=== PATIENT | female | born 1985 ===

== ENCOUNTER 2018-04-08 17:45 | Emergency (ER) | payer OTHER ==
[2018-04-08] MEDS ORDERED: Sodium Chloride 0.9% 1,000 ML IV ONE (18:30)
--- NOTE | 2018-04-08 18:37 | C.PDOC ---
History Of Present Illness <ReneeNicolette Elizabeth - Last Filed: 04/08/18 18:51> <Yary Tello - Last Filed: 04/08/18 20:36> 33-year-old female, approximately 18 weeks , sent over from clinic for ultrasound. Patient states she has not felt any baby movement in 2 days, prompting concern. She denies any associated abdominal pain, vaginal bleeding, or other symptoms. LMP was in November. (Nicolette Duran) History Per: Patient History/Exam Limitations: no limitations Onset/Duration Of Symptoms: Days Current Symptoms Are (Timing): Still Present Radiation Of Pain To:: None Abnormal Vaginal Bleeding: No : 4 Para: 3 <Renee,Nicolette Elizabeth - Last Filed: 04/08/18 18:51> <Yary Tello - Last Filed: 04/08/18 20:36> Time Seen by Provider: 04/08/18 18:20 Chief Complaint (Nursing): Female Genitourinary Past Medical History Reviewed: Historical Data, Nursing Documentation, Vital Signs - Medical History PMH: No Chronic Diseases Surgical History: Family History: States: No Known Family Hx - Social History Hx Tobacco Use: No Hx Alcohol Use: No Hx Substance Use: No <Renee,Nicolette Elizabeth - Last Filed: 04/08/18 18:51> Vital Signs: Last Vital Signs Temp 99.5 F 04/08/18 17:55 Pulse 92 H 04/08/18 17:55 Resp 18 04/08/18 17:55 BP 137/84 04/08/18 17:55 Pulse Ox 98 04/08/18 18:52 Review Of Systems Except As Marked, All Systems Reviewed And Found Negative. Constitutional: Negative for: Fever, Chills Cardiovascular: Negative for: Chest Pain Respiratory: Negative for: Shortness of Breath Gastrointestinal: Positive for: Other (lack of movement). Negative for: Nausea, Vomiting, Abdominal Pain Genitourinary: Negative for: Vaginal Bleeding Neurological: Negative for: Weakness, Numbness <ReneeNicolette A - Last Filed: 04/08/18 18:51> Physical Exam - Physical Exam Appears: Non-toxic, No Acute Distress Skin: Normal Color, Warm, Dry Head: Atraumatic, Normacephalic Eye(s): bilateral: Normal Inspection, PERRL, EOMI Neck: Normal ROM Chest: Symmetrical Cardiovascular: Rhythm Regular, No Murmur Respiratory: Normal Breath Sounds, No Rales, No Rhonchi, No Wheezing Gastrointestinal/Abdominal: Soft, No Tenderness, No Guarding Back: Normal Inspection Extremity: Bilateral: Atraumatic, Normal Color And Temperature, Normal ROM Neurological/Psych: Oriented x3, Normal Speech Gait: Steady <Nicolette Duran - Last Filed: 04/08/18 18:51> ED Course And Treatment - Laboratory Results Result Diagrams: 04/08/18 18:38 O2 Sat by Pulse Oximetry: 98 - CT Scan/US Pelvic US Other Rad Studies (CT/US): U/S Performed By Md CT/US Interpretation: Bedside US performed by oh, fetus visualized but no movement. Progress Note: Will order official ultrasound and labs to evaluate. Blood work and urine sent. Reassessment Condition: Unchanged <Nicolette Duran - Last Filed: 04/08/18 18:51> - Laboratory Results Result Diagrams: 04/08/18 18:38 04/08/18 18:38 <Yary Tello - Last Filed: 04/08/18 20:36> Disposition - Disposition Disposition Time: 19:00 - POA Present On Arrival: None <Nicolette Duran - Last Filed: 04/08/18 18:51> - Disposition Disposition Time: 20:35 <Yary Tello - Last Filed: 04/08/18 20:36> - Disposition Disposition: HOME/ ROUTINE Condition: STABLE Instructions: Dealing With Miscarriage Forms: [employer] ([place]gentine) Print Language: [place] - Clinical Impression Clinical Impression: demise before 20 weeks with retention of fetus - 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 - Scribe Statement The provider has reviewed the documentation as recorded by the Scribe (Radha Arthur) <Nicolette Duran - Last Filed: 04/08/18 18:51> <Yary Tello - Last Filed: 04/08/18 20:36> - Scribe Statement All medical record entries made by the Scribe were at my direction and personally dictated by me. I have reviewed the chart and agree that the record accurately reflects my personal performance of the history, physical exam, medical decision making, and the department course for this patient. I have also personally directed, reviewed, and agree with the discharge instructions and disposition. (Nicolette Duran) Physician Patient Turnover Patient Signed Over To: Yary Tello Handoff Comments: pending US <Nicolette Duran - Last Filed: 04/08/18 18:51> Addendum <Nicolette Duran - Last Filed: 04/08/18 18:51> <Yary Tello - Last Filed: 04/08/18 20:36> Addendum: 04/08/18 20:12 ULTRASOUND: Name: TERRI REEDER Age: 33Years F Date: 04/08/2018 Requesting Physician: Nicolette Duran APN : [id number] [employer] Procedure Ordered As Accession Number of Images US FIRST TRIMESTER NUCHAL DASHAWN EACH ADD GEST US OB LIMITED [id number] Provided Clinical History: bleeding Addendum created by Rojelio Lockett MD on 04/08/2018 7:59 PM Eastern Time ([place] & [place]) THIS REPORT CONTAINS FINDINGS THAT MAY BE CRITICAL TO PATIENT CARE. The findings were verbally communicated via telephone conference with Dr. Tello at 7:58 PM EDT on 04/08/2018. The findings were acknowledged and understood. Initial Report created on 04/08/2018 7:54 PM Eastern Time ([place] & [place]) EXAM: US After First Trimester, Transabdominal CLINICAL HISTORY: 33 years old, female; Signs and symptoms; Lmp or gestational age (in weeks): [id number]; Antepartum complications; Bleeding; ; Prior surgery; Surgery date: 6+ months; Surgery type: Poss c section scar. Unable to communicate TECHNIQUE: Real-time transabdominal obstetrical ultrasound of the maternal pelvis and a second or third trimester with image documentation. COMPARISON: No relevant prior studies available. FINDINGS: Fetus: Single fetus is seen. No motion is observed. Heart rate: No heart tones are detected. Presentation: presentation is breech. Placenta: The placenta is located posteriorly and is normal. No abruption. Amniotic fluid: Unremarkable. Anatomy: Visualized anatomy is normal. BIOMETRICS Gestational age: Gestational age by sonogram 14 weeks 2 days. LAURO by sonogram . LAURO: See above. EFW: Estimated weight 87 g. 3 ounces. Less than 3 percentile. BPD: 2.5 cm, 14 weeks 3 days. HC: 10.5 cm, 15 weeks 0 days. AC: 8 cm, 14 weeks 3 days. FL: 1.1 cm, 13 weeks 2 days. MATERNAL: Uterus: Unremarkable. No myometrial mass. Cervix: Cervix closed with 3 cm. Free fluid: No free fluid. IMPRESSION: Findings are consistent with presence of demise. Presentation is cephalic. Small for gestational age. Thank you for allowing us to participate in the care of your patient. Dictated and Authenticated by: Rojelio Lockett MD 04/08/2018 7:54 PM Eastern Time ([place] & [place]) Patient counseled regarding imaging findings. 04/08/18 20:[address] Wu. She is to be seen in the [facility] tomorrow. (Yary Tello)
[2018-04-08 18:44] LABS: BASO % 0.3 % (0.0-2.0); HEMOGLOBIN 13.7 g/dL (11.0-16.0); LYMPH # 2.6 K/uL (1.0-4.3); LYMPH % 38.2 % (20.0-40.0); MEAN CELL VOLUME 83.6 fL (81.0-99.0); MEAN CORPUSCULAR HEMOGLOBIN 28.9 pg (27.0-31.0); MEAN CORPUSCULAR HGB CONC 34.5 g/dL (33.0-37.0); MEAN PLATELET VOLUME 7.2 fL (7.2-11.7); MONO # 0.5 K/uL (0.0-0.8); NEUT # 3.8 K/uL (1.8-7.0); NEUT % 54.5 % (50.0-75.0); RBC 4.74 Mil/uL (3.80-5.20); RED CELL DISTRIBUTION WIDTH 13.3 % (11.5-14.5); WHITE BLOOD COUNT 6.9 K/uL (4.8-10.8)
[2018-04-08] MEDS ORDERED: Sodium Chloride 0.9% 1,000 ML ONE (18:44)
[2018-04-08 19:01] LABS: ALB/GLOB RATIO 1.3 (1.0-2.1); ALBUMIN 4.3 g/dL (3.5-5.0); ALT/SGPT 39 U/L (9-52); AST/SGOT 29 U/L (14-36); BLOOD UREA NITROGEN 7 mg/dL (7-17); CALCIUM 9.2 mg/dl (8.6-10.4); GFR NON-AFRICAN AMERICAN > 60
[2018-04-08 19:04] LABS: SQUAMOUS EPITHIAL 3 /hpf (0-5); URINE BACTERIA RARE (<OCC); URINE BILIRUBIN NEGATIVE (NEGATIVE); URINE BLOOD NEGATIVE (NEGATIVE); URINE CLARITY Clear (Clear); URINE COLOR Straw (YELLOW); URINE GLUCOSE (UA) NORMAL (Normal); URINE LEUKOCYTE ESTERASE TRACE Leu/uL (Negative); URINE PROTEIN NEGATIVE (NEGATIVE); URINE UROBILINOGEN NORMAL mg/dL (0.2-1.0)
[2018-04-08 19:09] LABS: HCG,QUALITATIVE URINE POSITIVE (NEGATIVE)
[2018-04-08 20:51] VITALS: BP 124/78; PULSE 87; RESP 20; TEMP 98.8; O2SAT 100
--- NOTE | 2018-04-09 08:32 | US ---
Date of service: 04/08/2018 PROCEDURE: Obstetrical ultrasound examination HISTORY: bleeding COMPARISON: Not available TECHNIQUE: Transabdominal FINDINGS: There is a single intrauterine gestation in breech presentation. No cardiac activity is detectable. A posterior placenta is identified. There is no evidence of placenta previa. The cervix is closed and measures 3.0 cm in length. There is oligohydramnios. biometry yields a gestational age equivalent to 14 weeks 2 days. Please note that the cephalic index is markedly below the consistent with dual echo cephaly. The LAURO by ultrasound is 10/05/2018. The EFW is 86.89 g. anatomy was not reviewed at this time. IMPRESSION: Findings consistent with demise. No detectable cardiac activity in what appears to be a 14 week 2 day gestation. Oligohydramnios. Breech presentation. No previa. The preliminary findings for this examination were reported by [facility] at 7:54 p.m. on 04/08/2018. There is concurrence of this report with the preliminary findings.
== END 2018-04-08 20:53 | disposition home or self-care (01) ==
LOC: C.ER 17:45
DX: O36.4XX0 Maternal care for intrauterine death, not applicable or unspecified (principal); Z3A.18 18 weeks gestation of pregnancy
CPT/HCPCS: 76815; 80053; 81001; 84702; 84703; 85025; 86850; 86900; 96360; 99284; J7030